=== PATIENT | female | born 1950 | race Caucasian/White ===

== ENCOUNTER 2021-10-27 00:18 | Day surgery (SDC) | payer MEDICARE, SELFPAY ==
[2021-10-05 14:56] VITALS: BMI 24.7
--- NOTE | 2021-10-26 14:53 | WPDANESEPPF ---
Anes - Initial Pre Proc Eval Procedure: Operation Date: 10/27/21 09:30 Proposed Procedures p Esophagogastroduodenoscopy & Screening Colonoscopy - Juni Harris MD Date/Time: 10/26/21 14:53 Surgeon: Juni Harris MD Pre Op Diagnosis: Dysphagia, Neoplasm screening Patient Data Age: 71 Gender: F Height: 1.57 m Weight: 61.3 kg Allergies Allergy/AdvReac Type Severity Reaction Status Date / Time latex Allergy Rash Verified 10/27/21 08:22 Home Medications Medication Instructions Recorded Confirmed Type latanoprost 0.005 % eye drops 1 drp EACH EYE DAILY 10/05/21 10/05/21 History levothyroxine 50 mcg tablet 1 tablet PO DAILY 10/05/21 10/05/21 History (Synthroid) lisinopril 2.5 mg PO DAILY 10/05/21 10/05/21 History Patient hx anesthesia problems: none Family hx anesthesia problems: none Results Review: All pre-operative results and documents have been reviewed as part of the pre-operative evaluation. [facility] Past Medical History Medical History (Updated 10/26/21 @ 16:33 by Juni Harris MD) Chronic GERD Glaucoma HTN (hypertension) Anes - Eval Final PreProcedure Day of Procedure 10/26/21 14:53 Patient weight: normal Heart: regular rate and rhythm Lungs: clear to auscultation and normal air movement Airway: Mallampati scale class II Neurological: alert and oriented Last oral intake: >/= 8 hours ASA classification: II Emergent: no Anesthetic plan: proceed Anesthesia type and monitoring: general GIVS Results Review: All pre-operative results and documents have been reviewed as part of the pre-operative evaluation. Informed Consent: The patient's anesthetic plan and its attendant risks and benefits were discussed with the patient/family/POA. Questions were solicited and answers provided to the satisfaction of the patient/family/POA.
--- NOTE | 2021-10-26 16:32 | PM.HPGS ---
History of Present Illness History of Present Illness Consent: Risks, benefits, and alternatives have been discussed and questions answered. Patient agrees to proceed with procedure. Chief complaint: Dysphagia, Neoplasm screening Narrative: Meredith Hernandez is a 71 year old female Referred for colon cancer screening. She also has had dysphagia solid food. She has a history of an esophageal stricture. Review of Systems Review of Systems: All systems reviewed & are unremarkable except as noted in HPI and below PMFSH Past Medical History Medical History Chronic GERD Glaucoma HTN (hypertension) Meds Home Medications and Allergies Home Medications Medication Instructions Recorded Confirmed Type latanoprost 0.005 % eye drops 1 drp EACH EYE DAILY 10/05/21 10/05/21 History levothyroxine 50 mcg tablet 1 tablet PO DAILY 10/05/21 10/05/21 History (Synthroid) lisinopril 2.5 mg PO DAILY 10/05/21 10/05/21 History Allergies Allergy/AdvReac Type Severity Reaction Status Date / Time latex Allergy Rash Verified 10/27/21 08:22 Exam Const: General: alert Orientation/consciousness: patient oriented x3 Resp: Auscultation: clear to auscultation bilaterally Cardio: Rhythm: regular rhythm GI: GI Palp: Yes Soft to palpation and No Tenderness to palpation present (GI) Neuro: General: patient oriented x3 Assessment and Plan Assessment and plan (1) Dysphagia: Code(s): R13.10 - Dysphagia, unspecified Status: Acute Assessment and Plan: EGD with possible biopsy or dilatation or cautery. (2) Colon cancer screening: Code(s): Z12.11 - Encounter for screening for malignant neoplasm of colon Status: Acute Assessment and Plan: Colonoscopy with possible biopsy or polypectomy or cautery or injection of substances.
[2021-10-27 08:23] VITALS: BP 154/75; PULSE 70; RESP 17; TEMP 36.3; O2SAT 100
[2021-10-27] MEDS: LACTATED RINGERS 1,000 ML 150 ML IV CONT (08:50)
[2021-10-27] MEDS: BENZOCAINE (*SP) 60 ML SPRAY CAN (HURRICAINE) 1 SPRAY MUCOUS MEM (09:27)
[2021-10-27 10:00] VITALS: BP 90/43; PULSE 60; RESP 18; O2SAT 97
[2021-10-27 10:10] VITALS: BP 125/67; PULSE 62; RESP 16; O2SAT 93
[2021-10-27 10:20] VITALS: BP 125/55; PULSE 54; RESP 20; O2SAT 100
== END 2021-10-27 10:37 | disposition home or self-care (01) ==
PROVIDERS: Visit Provider Internal Medicine Gastroenterology
PROC: 0DJ08ZZ Inspection of Upper Intestinal Tract, Via Natural or Artificial Opening Endoscopic (ICD-10-PCS; CPT 43235; principal; 2021-10-27 09:30)
DX: Z12.11 Encounter for screening for malignant neoplasm of colon (principal); K57.30 Diverticulosis of large intestine without perforation or abscess without bleeding; K63.5 Polyp of colon; K22.2 Esophageal obstruction; K44.9 Diaphragmatic hernia without obstruction or gangrene; K29.60 Other gastritis without bleeding; K31.7 Polyp of stomach and duodenum; K21.9 Gastro-esophageal reflux disease without esophagitis; I10 Essential (primary) hypertension; H40.9 Unspecified glaucoma
CPT/HCPCS: 45380; 43249; 43239; 87081; 88305; C1726; J2704; J7120

== ENCOUNTER 2021-12-20 00:07 | Day surgery (SDC) | payer MEDICARE, SELFPAY ==
[2021-12-01 13:02] VITALS: BMI 24.7
--- NOTE | 2021-12-20 06:40 | PM.HPGS ---
History of Present Illness History of Present Illness Consent: Risks, benefits, and alternatives have been discussed and questions answered. Patient agrees to proceed with procedure. Chief complaint: esophageal stricture Narrative: Meredith Luther is a 71 year old female Who had recently been found to have a severe stricture the distal esophagus. Her after esophageal dilatation with a balloon she had improvement for while but now is having significant dysphagia again. Review of Systems Review of Systems: All systems reviewed & are unremarkable except as noted in HPI and below PMFSH Past Medical History Medical History Chronic GERD Glaucoma HTN (hypertension) Social History Social History Smoking status: Never smoker Alcohol intake: current Drinks per week: 2 Substance use: never Spiritual care concerns: No Meds Home Medications and Allergies Home Medications Medication Instructions Recorded Confirmed Type latanoprost 0.005 % eye drops 1 drp EACH EYE DAILY 10/05/21 12/01/21 History levothyroxine 50 mcg tablet 1 tablet PO DAILY 10/05/21 12/01/21 History (Synthroid) lisinopril 5 mg PO DAILY 10/05/21 12/01/21 History denosumab 60 mg/mL subcutaneous See Rx Instructions .Route .COMPLEX 12/01/21 12/01/21 History syringe (Prolia) omeprazole 40 mg capsule,delayed 40 mg PO DAILY 12/01/21 12/01/21 History release Allergies Allergy/AdvReac Type Severity Reaction Status Date / Time latex Allergy Rash Verified 12/20/21 08:29 Exam Const: General: alert Orientation/consciousness: patient oriented x3 Resp: Auscultation: clear to auscultation bilaterally Cardio: Rhythm: regular rhythm GI: GI Palp: Yes Soft to palpation and No Tenderness to palpation present (GI) Neuro: General: patient oriented x3 Assessment and Plan Assessment and plan (1) Dysphagia: Code(s): R13.10 - Dysphagia, unspecified Status: Acute Assessment and Plan: EGD with possible biopsy or dilatation or cautery.
[2021-12-20 08:29] VITALS: BP 165/69; PULSE 84; RESP 18; TEMP 36.6; O2SAT 100
[2021-12-20] MEDS: LACTATED RINGERS 1,000 ML 150 ML IV CONT (08:35)
--- NOTE | 2021-12-20 08:51 | P.PNAN_ITS ---
Anes - Initial Pre Proc Eval Procedure: Operation Date: 12/20/21 09:30 Proposed Procedures p Esophagogastroduodenoscopy - Juni Harris MD Date/Time: 12/20/21 08:51 Surgeon: Juni Harris MD Pre Op Diagnosis: esophageal stricture Patient Data Age: 71 Gender: F Height: 1.57 m Weight: 62.6 kg Last Vital Signs Temp 97.8 F 12/20/21 08:29 Pulse 84 12/20/21 08:29 Resp 18 12/20/21 08:29 BP 165/69 H 12/20/21 08:29 Pulse Ox 100 12/20/21 08:29 O2 Del Method Room Air 12/20/21 08:29 Allergies Allergy/AdvReac Type Severity Reaction Status Date / Time latex Allergy Rash Verified 12/20/21 08:29 Home Medications Medication Instructions Recorded Confirmed Type latanoprost 0.005 % eye drops 1 drp EACH EYE DAILY 10/05/21 12/01/21 History levothyroxine 50 mcg tablet 1 tablet PO DAILY 10/05/21 12/01/21 History (Synthroid) lisinopril 5 mg PO DAILY 10/05/21 12/01/21 History denosumab 60 mg/mL subcutaneous See Rx Instructions .Route .COMPLEX 12/01/21 12/01/21 History syringe (Prolia) omeprazole 40 mg capsule,delayed 40 mg PO DAILY 12/01/21 12/01/21 History release Patient hx anesthesia problems: none Family hx anesthesia problems: none Results Review: All pre-operative results and documents have been reviewed as part of the pre- operative evaluation. PENDING SALE TO [facility] Past Medical History Medical History Chronic GERD Glaucoma HTN (hypertension) Social History Social History Smoking status: Never smoker Alcohol intake: current Drinks per week: 2 Substance use: never Spiritual care concerns: No Anes - Eval Final PreProcedure Day of Procedure 12/20/21 08:51 Patient weight: normal Heart: regular rate and rhythm Lungs: clear to auscultation Airway: Mallampati scale class II Neurological: alert and oriented Last oral intake: >/= 8 hours ASA classification: II Emergent: no Anesthetic plan: proceed Anesthesia type and monitoring: general GIVS and standard monitoring Results Review: All pre-operative results and documents have been reviewed as part of the pre- operative evaluation. Informed Consent: The patient's anesthetic plan and its attendant risks and benefits were discussed with the patient/family/POA. Questions were solicited and answers provided to the satisfaction of the patient/family/POA.
[2021-12-20 09:13] VITALS: BP 86/42; PULSE 77; RESP 16; O2SAT 98
[2021-12-20 09:23] VITALS: BP 118/74; PULSE 62; RESP 18; O2SAT 98
[2021-12-20 09:33] VITALS: BP 124/67; PULSE 58; RESP 17; O2SAT 98
== END 2021-12-20 09:43 | disposition home or self-care (01) ==
PROVIDERS: Visit Provider Internal Medicine Gastroenterology
PROC: 0DJ08ZZ Inspection of Upper Intestinal Tract, Via Natural or Artificial Opening Endoscopic (ICD-10-PCS; CPT 43235; principal; 2021-12-20 09:30)
DX: K22.2 Esophageal obstruction (principal); K44.9 Diaphragmatic hernia without obstruction or gangrene; K21.9 Gastro-esophageal reflux disease without esophagitis; I10 Essential (primary) hypertension; H40.9 Unspecified glaucoma
CPT/HCPCS: 43249; 88305; C1726; J2704; J7120